=== PATIENT | female | born 1990 | race Caucasian/White ===

== ENCOUNTER 2019-12-24 20:38 | Emergency (ER) | payer MEDICAID, OTHER ==
[~2019-12-24] VITALS: Ht 157.5 cm; Wt 62.3 kg
[~2019-12-24 20:38] MED LIST: DICL50TA8 PO
[2019-12-24 20:43] VITALS: BP 119/71
== END 2019-12-24 22:45 | disposition home or self-care (01) ==
LOC: ER 20:38
DX: L29.9 Pruritus, unspecified (principal); R22.1 Localized swelling, mass and lump, neck; Z79.899 Other long term (current) drug therapy
CPT/HCPCS: 99282

== ENCOUNTER 2021-06-14 10:45 | Emergency (ER) | payer MEDICAID ==
[~2021-06-14] VITALS: Ht 157.5 cm; Wt 56.0 kg
[2021-06-14] MEDS ORDERED: tetanus & diphtheria toxoid (Td) vaccine 0.5ml IMVAC ONE (11:20)
[2021-06-14] MEDS ORDERED: bacitracin 15gm ointment TP ONE (11:20)
[2021-06-14] MEDS ORDERED: AMOX-422 PO (11:21)
[2021-06-14] MEDS ORDERED: TETanus/Pertussis (Acell)/Diphther VAC/PF (Tdap-Adult) 0.5ml syringe IMVAC ONE (11:25)
--- NOTE | 2021-06-14 11:56 | NUR ---
pt became nauseated, clammy, cool and diaphoretic, stated she was going to throw up. Pt had dry heaves, started feeling better soon after. Wounds cleansed and dressed. Pt dc'd in stable conditon with belonginds. Educated on ABX's and to continure until done.
[2021-06-14 11:58] VITALS: BP 100/57
== END 2021-06-14 12:01 | disposition home or self-care (01) ==
LOC: ER 10:46
DX: S61.551A Open bite of right wrist, initial encounter (principal); W55.01XA Bitten by cat, initial encounter; Y93.89 Activity, other specified; Y92.89 Other specified places as the place of occurrence of the external cause; Y99.8 Other external cause status
CPT/HCPCS: 90471; 90715; 99283

== ENCOUNTER 2021-06-15 04:03 | Emergency (ER) | payer MEDICAID, OTHER ==
[~2021-06-15] VITALS: Ht 157.5 cm; Wt 56.8 kg
[~2021-06-15 04:03] MED LIST changes: +AMOX-422 PO
[2021-06-15 04:19] VITALS: BP 122/71
== END 2021-06-15 05:14 | disposition home or self-care (01) ==
LOC: ER 04:04
DX: S61.451A Open bite of right hand, initial encounter (principal); I89.1 Lymphangitis; Z79.2 Long term (current) use of antibiotics; W55.01XA Bitten by cat, initial encounter; Y93.89 Activity, other specified; Y92.89 Other specified places as the place of occurrence of the external cause; Y99.8 Other external cause status
CPT/HCPCS: 99281

== ENCOUNTER 2021-06-15 21:19 | Emergency (ER) | payer MEDICAID, OTHER | END 2021-06-15 23:48 | disposition left against medical advice (07) | LOC: ER 21:20 | DX: Z53.21 Procedure and treatment not carried out due to patient leaving prior to being seen by health care provider (principal) ==

== ENCOUNTER 2021-06-16 08:33 | Emergency (ER) | payer MEDICAID ==
[~2021-06-16] VITALS: Ht 157.5 cm; Wt 56.8 kg
[2021-06-16 08:52] VITALS: BP 128/52
== END 2021-06-16 09:00 | disposition home or self-care (01) ==
LOC: ER 08:34
DX: S61.451D Open bite of right hand, subsequent encounter (principal); Z79.2 Long term (current) use of antibiotics; W55.01XD Bitten by cat, subsequent encounter
CPT/HCPCS: 99281

== ENCOUNTER 2021-06-17 15:01 | Emergency (ER) | payer MEDICAID ==
[~2021-06-17] VITALS: Ht 157.5 cm; Wt 53.6 kg
== END 2021-06-17 20:26 | disposition home or self-care (01) ==
LOC: ER 15:02
DX: S61.411A Laceration without foreign body of right hand, initial encounter (principal); Z79.2 Long term (current) use of antibiotics; X58.XXXA Exposure to other specified factors, initial encounter; Y93.89 Activity, other specified; Y92.89 Other specified places as the place of occurrence of the external cause; Y99.8 Other external cause status
CPT/HCPCS: 99281; 99282

== ENCOUNTER 2022-06-04 14:24 | Emergency (ER) | payer MEDICAID ==
[~2022-06-04] VITALS: Ht 157.5 cm; Wt 55.5 kg
[~2022-06-04 14:24] MED LIST changes: -AMOX-422 PO
[2022-06-04 14:33] VITALS: BP 115/79
[2022-06-04] MEDS ORDERED: ondansetron 4mg rapidly disintigrating tab PO ONE (15:00)
[2022-06-04] MEDS ORDERED: dexamethasone sod phosphate 10mg/ml inj PO STA (15:21)
[2022-06-04] MEDS ORDERED: acetaminophen 325mg tablet PO ONE (15:25)
[2022-06-04] MEDS ORDERED: ONDA8TAB13 PO (16:03)
[2022-06-04] MEDS ORDERED: ALBU8HFA PO (16:03)
== END 2022-06-04 16:12 | disposition home or self-care (01) ==
LOC: ER 14:24
DX: J40 Bronchitis, not specified as acute or chronic (principal); R11.2 Nausea with vomiting, unspecified; Z79.899 Other long term (current) drug therapy
CPT/HCPCS: 71045; 99284; J1100